=== PATIENT | male | born 1990 | race Caucasian/White ===

== ENCOUNTER 2021-07-17 13:19 | Outpatient (CLI) | payer OTHER | END 2021-07-17 14:52 | disposition home or self-care (01) | LOC: LAB 13:19 | DX: Z20.2 Contact with and (suspected) exposure to infections with a predominantly sexual mode of transmission (principal) ==

== ENCOUNTER 2021-08-29 09:40 | Outpatient (CLI) | payer OTHER | END 2021-08-29 18:00 | disposition home or self-care (01) | LOC: LAB 09:40 | DX: Z00.00 Encounter for general adult medical examination without abnormal findings (principal) ==